=== PATIENT | female | born 1970 | race Caucasian/White ===

== ENCOUNTER 2022-10-31 13:32 | Emergency (ER) | payer OTHER ==
[~2022-10-31] VITALS: Ht 165.1 cm; Wt 72.6 kg
== END 2022-10-31 15:07 | disposition home or self-care (01) ==
LOC: ER 13:32
DX: S16.1XXA Strain of muscle, fascia and tendon at neck level, initial encounter (principal); V49.40XA Driver injured in collision with unspecified motor vehicles in traffic accident, initial encounter; Z88.0 Allergy status to penicillin; Z88.2 Allergy status to sulfonamides
CPT/HCPCS: A9270; J1885

== ENCOUNTER 2023-07-22 09:29 | Inpatient (IN) | payer OTHER ==
[~2023-07-22] VITALS: Ht 170.2 cm; Wt 80.7 kg
[2023-07-22 10:42] LABS: BASOPHILS ABSOLUTE AUTO 0.06 K/mm3 (0.00-0.23); BASOPHILS PERCENT AUTO 0 % (0-2); EOSINOPHILS ABSOLUTE AUTO 0.06 K/mm3 (0.00-0.68); EOSINOPHILS PERCENT AUTO 0 % (0-6); Hematocrit 41.3 % (33.0-51.0); Hemoglobin 14.2 g/dL (11.5-16.0); IMMATURE GRAN ABSOLUTE AUTO 0.04 K/mm3 (0.00-0.10); IMMATURE GRAN PERCENT AUTO 0 % (0-1); LYMPHOCYTES ABSOLUTE AUTO 1.67 K/mm3 (0.84-5.20); LYMPHOCYTES PERCENT AUTO 11 % (21-46); MONOCYTES ABSOLUTE AUTO 0.84 K/mm3 (0.16-1.47); MONOCYTES PERCENT AUTO 6 % (4-13); Mean Corpuscular HGB 28.8 pg (26.0-34.0); Mean Corpuscular HGB Conc 34.4 g/dL (31.5-36.5); Mean Corpuscular Volume 84 fL (80-100); Mean Platelet Volume 8.9 fL (9.1-12.4); NEUTROPHILS ABSOLUTE AUTO 12.08 K/mm3 (1.96-9.15); NEUTROPHILS PERCENT AUTO 82 % (41-73); Platelet Count 413 K/mm3 (150-400); RDW Standard Deviation 39.4 fL (35.1-46.3); Red Blood Cell Count 4.93 M/mm3 (3.80-5.20); White Blood Cell Count 14.75 K/mm3 (4.00-11.30)
[2023-07-22] MEDS ORDERED: Amitriptyline H10 MG PO (10:45)
[2023-07-22] MEDS ORDERED: GLIP2.5ER PO (10:45)
[2023-07-22] MEDS ORDERED: ALPRAZOLAM0.5 M1 PO (10:45)
[2023-07-22] MEDS ORDERED: CYCL10 PO (10:45)
[2023-07-22] MEDS ORDERED: Oxybutynin Chlor5 M1 PO (10:46)
[2023-07-22] MEDS ORDERED: ATOR20 PO (10:47)
[2023-07-22 11:00] LABS: Albumin, Blood 3.3 g/dL (3.4-5.0); Albumin/Globulin Ratio 0.8 (0.8-1.8); Bilirubin, Total 0.6 mg/dL (0.1-1.0); Bun/Creatinine Ratio 15.8 (12.0-20.0); Calcium, Blood 9.3 mg/dL (8.5-10.1); Creatinine, Blood 0.82 mg/dL (0.40-1.00); Potassium, Blood 4.4 mmol/L (3.5-5.5); Total Protein, Blood 7.3 g/dL (6.4-8.2)
[2023-07-22 11:12] LABS: Source, Urine Clean Catch
[2023-07-22 11:21] LABS: Appearance, Urine Clear (Clear); Bilirubin, Urine Neg (Neg); Blood, Urine Neg (Neg); Color, Urine Yellow (P-Yellow); Glucose Qualitative, Urine Neg (Neg); Ketones, Urine Neg (Neg); Leukocyte Esterase, Urine Neg (Neg); Nitrite, Urine Neg (Neg); Protein, Urine 1+ (Neg); Urobilinogen, Urine NORM (Normal)
[2023-07-22 19:23] VITALS: BP 110/77
--- NOTE | 2023-07-22 21:25 | NUR ---
CARE ASSESSMENT: RECEIVED REPORT FROM DAYTIME RN @[id number]. PT ALERT AND ORIENTED X4, ABLE TO FOLLOW COMMANDS AND MAKE NEEDS KNOWN. COOPERATIVE WITH CARE. BP AND HR STABLE. AFEBRILE. SATS >98% ON ROOM AIR. RESPIRATIONS EVEN AND UNLABORED. PULSES STRONG AND EQUAL THROUGHOUT. PT ADMITTED FOR ABDOMINAL ABCESS, PT RECEIVING ABX AND NS @100ML IN LAC. ON CLEAR LIQUID DIET. DENIES PAIN AT THIS TIME. BOWEL TONES HYPERACTIVE, X4 QUADRANTS. ABLE TO AMBULATE IND. BED IN LOW, CALL LIGHT IN REACH.
--- NOTE | 2023-07-23 00:25 | NUR ---
UPDATE/TRANSFER OF CARE: NO ACUTE CHANGES SINCE PREVIOUS ASSESSMENT. PT ABLE TO AMBULATE UP AND DOWN HALLWAY, NOW RESTING QUIETLY IN BED. WILL GIVE REPORT TO LARISA Martinez RN
[2023-07-23 04:06] VITALS: BP 105/69
[2023-07-23 04:17] LABS: BASOPHILS ABSOLUTE AUTO 0.04 K/mm3 (0.00-0.23); BASOPHILS PERCENT AUTO 1 % (0-2); EOSINOPHILS PERCENT AUTO 3 % (0-6); Hematocrit 38.6 % (33.0-51.0); Hemoglobin 13.1 g/dL (11.5-16.0); IMMATURE GRAN ABSOLUTE AUTO 0.02 K/mm3 (0.00-0.10); IMMATURE GRAN PERCENT AUTO 0 % (0-1); LYMPHOCYTES ABSOLUTE AUTO 1.78 K/mm3 (0.84-5.20); LYMPHOCYTES PERCENT AUTO 22 % (21-46); MONOCYTES ABSOLUTE AUTO 0.74 K/mm3 (0.16-1.47); MONOCYTES PERCENT AUTO 9 % (4-13); Mean Corpuscular HGB 28.8 pg (26.0-34.0); Mean Corpuscular HGB Conc 33.9 g/dL (31.5-36.5); Mean Corpuscular Volume 85 fL (80-100); Mean Platelet Volume 8.9 fL (9.1-12.4); NEUTROPHILS ABSOLUTE AUTO 5.32 K/mm3 (1.96-9.15); NEUTROPHILS PERCENT AUTO 66 % (41-73); Platelet Count 377 K/mm3 (150-400); RDW Standard Deviation 40.2 fL (35.1-46.3); Red Blood Cell Count 4.55 M/mm3 (3.80-5.20)
[2023-07-23 04:39] LABS: Bun/Creatinine Ratio 14.9 (12.0-20.0); Calcium, Blood 8.6 mg/dL (8.5-10.1); Creatinine, Blood 0.74 mg/dL (0.40-1.00)
--- NOTE | 2023-07-23 04:53 | NUR ---
SHIFT SUMMARY THIS RN ASSUMED CARE OF PT AT APPROX 0045. PT RESTING COMFORTABLY WITH EYES CLOSED. INDEP TO RESTROOM. IVF INFUSING PER ORDERS. MEDICATED WITH TYLENOL FOR HEADACHE. USES CALL LIGHT APPROPRIATELY.
[2023-07-23 06:58] VITALS: BP 99/68
[2023-07-23 14:56] VITALS: BP 107/77
--- NOTE | 2023-07-23 18:04 | NUR ---
SHIFT SUMMARY PT A&OX4, VSS/RA, CRISTIAN PO SIPS H20, VOIDING, AMB INDEPENDENTLY, DENIES ABD PAIN, IVF/ABX INFUSING. WILL REPORT TO ONCOMING NOC RN.
[2023-07-23 19:10] VITALS: BP 110/78
[2023-07-24 04:12] VITALS: BP 106/70
--- NOTE | 2023-07-24 04:40 | NUR ---
SHIFT SUMMARY PT A&OX4, IND IN THE ROOM. TOLERATING CLEAR LIQUID DIET WELL. SLEPT T/O NIGHT. DENIES PAIN, AND N/V. NO FUTHER CNOCERNS AT THIS TIME. CALL LIGHT WITHIN REACH.
[2023-07-24 07:05] VITALS: BP 112/79
[2023-07-24 08:48] LABS: BASOPHILS ABSOLUTE AUTO 0.04 K/mm3 (0.00-0.23); BASOPHILS PERCENT AUTO 1 % (0-2); EOSINOPHILS ABSOLUTE AUTO 0.17 K/mm3 (0.00-0.68); EOSINOPHILS PERCENT AUTO 2 % (0-6); Hematocrit 40.9 % (33.0-51.0); Hemoglobin 13.9 g/dL (11.5-16.0); IMMATURE GRAN ABSOLUTE AUTO 0.01 K/mm3 (0.00-0.10); IMMATURE GRAN PERCENT AUTO 0 % (0-1); LYMPHOCYTES ABSOLUTE AUTO 1.74 K/mm3 (0.84-5.20); LYMPHOCYTES PERCENT AUTO 24 % (21-46); MONOCYTES ABSOLUTE AUTO 0.49 K/mm3 (0.16-1.47); MONOCYTES PERCENT AUTO 7 % (4-13); Mean Corpuscular HGB 29.1 pg (26.0-34.0); Mean Corpuscular Volume 86 fL (80-100); Mean Platelet Volume 8.7 fL (9.1-12.4); NEUTROPHILS ABSOLUTE AUTO 4.87 K/mm3 (1.96-9.15); NEUTROPHILS PERCENT AUTO 67 % (41-73); Platelet Count 414 K/mm3 (150-400); RDW Coefficient Variation 12.8 % (11.7-14.2); RDW Standard Deviation 40.3 fL (35.1-46.3); Red Blood Cell Count 4.78 M/mm3 (3.80-5.20); White Blood Cell Count 7.32 K/mm3 (4.00-11.30)
--- NOTE | 2023-07-24 14:38 | NUR ---
SHIFT SUMMARY PT A&OX4, VSS/RA, CRISTIAN PO FLD, VOIDING/3 BMS TODAY (1 BROWN FORMED & 2 BROWN LIQUID), AMB INDEPENDENTLY, IVF/ABX PER EMAR, DENIES PAIN. WILL REPORT TO ONCOMING NOC RN.
[2023-07-24 14:59] VITALS: BP 127/77
[2023-07-24 19:06] VITALS: BP 121/95
[2023-07-25 04:24] VITALS: BP 92/66
--- NOTE | 2023-07-25 04:34 | NUR ---
SHIFT SUMMARY PT A/O X4, AMBULATING TO THE BATHROOM INDEPENDENTLY. DENIES ANY PAIN. RESTED COMFORTABLY T/O NIGHT. EAGER TO GO HOME. NO CONCERNS AT THIS TIME. CALL LIGHT GERI PATEL.
[2023-07-25 07:14] VITALS: BP 114/77
[2023-07-25] MEDS ORDERED: ACET325 PO (09:22)
[2023-07-25] MEDS ORDERED: METR500 PO (09:23)
[2023-07-25] MEDS ORDERED: CEPH500 PO (09:23)
[2023-07-25] MEDS ORDERED: VISBIOME 112.51 EACH PO (09:24)
[2023-07-25] MEDS ORDERED: ONDA4ODT MM (09:24)
--- NOTE | 2023-07-25 10:33 | NUR ---
DISCHARGE ALL INSTRUCTIONS GONE OVER WITH PATIENT, PRESCRIPTIONS SENT TO [facility] PER REQUEST. PT DENIES PAIN AND TOLERATES DIET WELL. REPORTS CONTINUED LOOSE STOOL. SHE AMBULATES WELL INDEPENDENTLY. DENIES FURTHER NEEDS. ALL BELONGINGS WITH PATIENT.
== END 2023-07-25 10:59 | disposition home or self-care (01) | DRG 391 ==
LOC: ER 09:29 → SURS 15:22
PROVIDERS: Student in an Organized Health Care Education/Training Program; Surgery; ADMIT Internal Medicine
DX: K57.20 Diverticulitis of large intestine with perforation and abscess without bleeding (principal); K65.1 Peritoneal abscess; E11.9 Type 2 diabetes mellitus without complications; F41.9 Anxiety disorder, unspecified; K59.00 Constipation, unspecified; Z88.0 Allergy status to penicillin; Z79.899 Other long term (current) drug therapy; Z88.2 Allergy status to sulfonamides; Z87.19 Personal history of other diseases of the digestive system; Z98.84 Bariatric surgery status; Z90.49 Acquired absence of other specified parts of digestive tract; Z79.4 Long term (current) use of insulin; Z88.1 Allergy status to other antibiotic agents; Z87.891 Personal history of nicotine dependence; Z79.02 Long term (current) use of antithrombotics/antiplatelets
CPT/HCPCS: 36415; 74177; 80048; 80053; 83690; 84703; 85025; 93005; 93010; 96365-59; 96375; 99285-25; A9270; J0696; J0744; J7030; Q9967